=== PATIENT | male | born 1970 | race Caucasian/White ===

== ENCOUNTER 2017-05-12 09:17 | Outpatient (RCR) | payer OTHER | END 2017-08-10 | LOC: WSOH | DX: S91.331A Puncture wound without foreign body, right foot, initial encounter (principal); W45.0XXA Nail entering through skin, initial encounter; Y99.0 Civilian activity done for income or pay ==

== ENCOUNTER → 2017-05-12 | Outpatient (REF) ==
[~2017-05-12] MED LIST: ASPIRIN E.C. 8181 MG PO; BENADRYL25 M2 PO; LORTAB 5/500 501 TAB PO; NO HOME MEDICATIONS; PREDNISONE20 MG PO; ZEBETA 5MG5 MG PO
== END ==
LOC: WSOH 09:33
DX: Z02.89 Encounter for other administrative examinations (principal)

== ENCOUNTER → 2022-02-04 | Outpatient (CLI) | payer BC | LOC: COL.RAD 11:30 | DX: M79.621 Pain in right upper arm (principal) | CPT/HCPCS: J3301 ==